=== PATIENT | male | born 1990 | race Hispanic/Latino ===

== ENCOUNTER 2021-02-06 22:04 | Inpatient (IN) | payer BC ==
[2021-02-06] MEDS ORDERED: MORPHINE 4 MG/ML SYR ONE (22:25)
[2021-02-06] MEDS ORDERED: FAMOTIDINE 20 MG/2 ML VIAL IV ONE (22:26)
[2021-02-06] MEDS ORDERED: ONDANSETRON 4 MG/2 ML VIAL ONE (22:26)
[2021-02-06 22:53] LABS: Absolute Lymphocytes (CBC) 1.9 K/uL (0.7-4.9); Basophils % 0.2 % (0-1.3); Hematocrit 45.7 % (39.6-49.0); Lymphocytes % 23.9 % (15.3-44.8); MPV 9.8 fL (7.6-11.3); RBC Red Blood Cell Count 5.06 M/uL (4.33-5.43)
[2021-02-06 23:18] LABS: ALT/SGPT 41 U/L (12-78); AST/SGOT 21 U/L (15-37); Albumin 4.1 g/dL (3.4-5.0); Alkaline Phosphatase 53 U/L (45-117); BUN Blood Urea Nitrogen 18 mg/dL (7-18); Bicarbonate 24 mmol/L (21-32); Bilirubin Direct 0.3 mg/dL (0-0.2); Glucose Level 124 mg/dL (74-106); Magnesium 2.3 mg/dL (1.8-2.4); NT PRO-BNP 100 pg/mL (<125); Potassium 3.4 mmol/L (3.5-5.1); Protein, Total 7.6 g/dL (6.4-8.2); Sodium Level 142 mmol/L (136-145); Troponin (Emerg Dept Use Only) < 0.02 ng/mL (0.0-0.045)
[2021-02-06 23:27] LABS: Protime INR 1.03
[2021-02-06] MEDS ORDERED: NA CHLORIDE 0.9% 1,000 ML ONE (23:31)
[2021-02-07 01:22] LABS: Urine Blood Negative (Negative); Urine Glucose Negative (Negative); Urine Protein 2+ (Negative); Urine pH >=9.0 (5.0-7.0)
--- NOTE | 2021-02-07 02:19 | ER ---
Nurse's Notes [facility] Name: Prince Townsend Age: 30 yrs Sex: Male : 1990 Arrival Date: 02/06/2021 Time: 22:08 Bed 7 Private MD: Diagnosis: Upper abdominal pain, unspecified;Cholelithiasis, possible cholecystitis Presentation: 02/06 22:08 Chief complaint: EMS states: " He was at work when he started to feel a chest pain it tw5 started in the back and moved to chest. He was complaining that he was started to short of breath. He has been throwing some PVC's otherwise his EKG looked good. We did give him [address] over here. Coronavirus screen: Vaccine status: Patient reports receiving the 2nd dose of the covid vaccine. BCKSTGR. Ebola Screen: Patient negative for fever greater than or equal to 101.5 degrees Fahrenheit, and additional compatible Ebola Virus Disease symptoms Patient denies exposure to infectious person. Patient denies travel to an Ebola-affected area in the 21 days before illness onset. Initial Sepsis Screen: Does the patient meet any 2 criteria? No. Patient's initial sepsis screen is negative. Does the patient have a suspected source of infection? No. Patient's initial sepsis screen is negative. Risk Assessment: Do you want to hurt yourself or someone else? Patient reports no desire to harm self or others. Onset of symptoms was February 06, 2021 at 07:30. 22:08 Method Of Arrival: EMS: [facility] tw5 22:08 Acuity: JOHN 2 tw5 Triage Assessment: 22:12 General: Appears in no apparent distress. Behavior is cooperative, appropriate for age, tw5 anxious. Pain: Complains of pain in chest Pain currently is 8 out of 10 on a pain scale. Quality of pain is described as heavy, pressure, radiating. 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 - Social history:: Smoking status: Patient denies any tobacco usage or history of. Screenin:14 Abuse screen: Denies threats or abuse. Denies injuries from another. Nutritional tw5 screening: No deficits noted. Tuberculosis screening: No symptoms or risk factors identified. Fall Risk No fall in past 12 months (0 pts). No secondary diagnosis (0 pts). IV access (20 points). Ambulatory Aid- None/Bed Rest/Nurse Assist (0 pts). Gait- Normal/Bed Rest/Wheelchair (0 pts). Assessment: 22:14 General: Appears uncomfortable, Behavior is cooperative, appropriate for age, anxious, tw5 Reports " It hurts so bad". Pain: Complains of pain in chest Pain currently is 8 out of 10 on a pain scale. Quality of pain is described as heavy, pressure. Cardiovascular: Rhythm is sinus rhythm with unifocal PVCs. 22:40 General: Behavior is. Derm: Skin is clammy, Skin is pale. tw5 23:39 General: at the bedside " He is doing okay, but he will fall asleep and his tw5 breathing gets really shawllow.". General: Behavior is drowsy. Neuro: Level of Consciousness is awake, alert. Neuro: Level of Consciousness is obeys commands, Oriented to person, place, time, situation. Respiratory: Airway is patent Trachea midline Respiratory effort is even, unlabored, shallow, Respiratory pattern is regular. GI: Abdomen is non-distended, obese, Bowel sounds present X 4 quads. Abd is soft X 4 quads Abdomen is tender to palpation in right upper quadrant. 02/07 01:16 Reassessment: Patient appears in no apparent distress at this time. No changes from tw5 previously documented assessment. General: Behavior is calm, cooperative. Pain: Pain currently is 5 out of 10 on a pain scale. 02:09 Reassessment: provider at the bedside. tw5 02:27 General: [phone] Hanny- . tw5 02:29 Pain: Pain currently is 8 out of 10 on a pain scale. tw5 06:36 Reassessment: Patient appears in no apparent distress at this time. No changes from tw5 previously documented assessment. " I am actually feeling a lot better.". Vital Signs: 02/06 22:08 BP 128 / 87; Pulse 69; Resp 14; Temp 98.7; Pulse Ox 98% on R/A; Weight 90.72 kg; Height tw5 5 ft. 6 in. (167.64 cm); Pain 8/10; 22:29 Pulse Ox 71% on R/A; tw5 22:40 BP 118 / 82; Pulse 69; Resp 18; Pulse Ox 100% on R/A; Pain 8/10; tw5 23:39 BP 123 / 78; Pulse 74; Resp 18; Pulse Ox 100% on R/A; tw5 23:41 Pain 5/10; tw5 12 01:16 BP 121 / 86; Pulse 69; Resp 18; Pulse Ox 100% on R/A; Pain 5/10; tw5 02:10 BP 123 / 74; Pulse 94; Resp 20; Pulse Ox 100% on R/A; tw5 06:37 Pain 5/10; tw5 02/06 22:08 Body Mass Index 32.28 (90.72 kg, 167.64 cm) tw5 02/06 22:29 Patient states that he feels like the pressure is spreading all the way to his sternum. tw5 Patient was instructed to take some deep breaths. Oxygen hooked up for standby. Patient's oxygen level increased to 100 after talking to the patient. ED Course: 22:08 Patient arrived in ED. cs9 22:08 Anastasia Noland is Primary Nurse. tw5 22:12 Triage completed. tw5 22:12 Arm band placed on Patient placed in an exam room, on a stretcher, on classroom monitor, tw5 on pulse oximetry. EKG completed in triage. Results shown to MD. 22:14 Angel Moreau MD is Attending Physician. [facility] 22:14 Patient has correct armband on for positive identification. Placed in gown. Bed in low tw5 position. Call light in reach. Side rails up X 1. ekg monitor on. Pulse ox on. NIBP on. Door closed. Noise minimized. Lights dimmed. Warm blanket given. Verbal reassurance given. 22:14 Initial lab(s) drawn, by me, sent to lab. Maintain EMS IV. Dressing intact. Good blood tw5 return noted. Site clean \\T\\ dry. Gauge \\T\\ site: 20 RAC. 22:41 Basic Metabolic Panel Sent. tw5 22:41 CBC with Automated Diff Sent. tw5 22:41 Liver (Hepatic) Function Sent. tw5 22:41 Basic Metabolic Panel Sent. tw 22:41 CBC with Diff Sent. 22:41 LFT's Sent. tw 22:41 Magnesium Sent. tw 22:41 NT PRO-BNP Sent. tw 22:41 PT-INR Sent. tw 22:41 Troponin (emerg Dept Use Only) Sent. tw5 22:53 US Abdomen Limited In Process Unspecified. EDMS 23:45 Chest Single View XRAY In Process Unspecified. EDMS 02/07 01:16 Urine collected: clean catch specimen. tw5 02:18 John Taylor MD is Hospitalizing Provider. [facility] 08:52 No provider procedures requiring assistance completed. Patient admitted, IV remains in 7 place. intact, No redness/swelling at site. 14:24 Primary Nurse role handed off by Anastasia Noland Administered Medications: 02/06 22:33 Drug: Pepcid (famotidine) 20 mg Route: IVP; Site: right antecubital; tw5 23:41 Follow up: Response: No adverse reaction tw 22:34 Drug: morphine 4 mg Route: IVP; Site: right antecubital; tw5 23:41 Follow up: Response: No adverse reaction tw 23:41 Follow up: Pain 5/10 Adult; Response: No adverse reaction; Anxiety decreased; RASS: tw5 Drowsy (-1) 22:34 Drug: Zofran (Ondansetron) 4 mg Route: IVP; Site: right antecubital; tw5 23:41 Follow up: Response: No adverse reaction tw5 23:40 Drug: NS 0.9% 1000 ml Route: IV; Rate: 1000 ml; Site: right antecubital; tw5 02/07 01:17 Follow up: Response: No adverse reaction; IV Status: Completed infusion tw5 02:30 Drug: Zofran (Ondansetron) 4 mg Route: IVP; Site: right antecubital; tw5 06:37 Follow up: Response: No adverse reaction tw5 02:31 Drug: morphine 4 mg Route: IVP; Site: right antecubital; tw5 06:37 Follow up: Pain 5/10 Adult; Response: No adverse reaction; Pain is decreased; RASS: tw5 Alert and Calm (0) 02:32 Drug: Zosyn (piperacillin-tazobactam) 3.375 grams Route: IVPB; Infused Over: 60 mins; tw5 Site: right antecubital; 06:36 Follow up: Response: No adverse reaction; IV Status: Completed infusion tw5 Outcome: 02:19 Decision to Hospitalize by Provider. [facility] 09:52 Admitted to ER Hold. Please see [facility] for further documentation. 7 09:52 Condition: stable 09:52 Discharge instructions given to patient, family, Instructed on the need for admit, Demonstrated understanding of instructions. 14:52 Patient left the ED. jl7 Signatures: Dispatcher [employer] EDMS Renetta Domingo RN RN jl7 Radha Matos Maurice, MD MD [facility] Anastasia Noland rust Cristal Francois Davian Corrections: (The following items were deleted from the chart) 02:24 02:20 CORONAVIRUS+ drawn and sent. 5 EDND 09:52 08:00 Inserted saline lock: 22 gauge in right wrist, using aseptic technique. jl7 jl7
--- NOTE | 2021-02-07 02:19 | EDPHYS ---
Physician Documentation [facility] Name: Prince Townsend Age: 30 yrs Sex: Male : 1990 Arrival Date: 02/06/2021 Time: 22:08 Bed 7 Private MD: ED Physician Angel Moreau HPI: 02/06 22:22 This 30 yrs old Male presents to ER via EMS with complaints of Chest Pain. mh7 22:22 The patient or guardian reports chest pain that is located primarily in the anterior mh7 chest wall, right. The pain radiates to right back. Associated signs and symptoms: Pertinent positives: abdominal pain, Pertinent negatives: cough, diaphoresis, dizziness, headache, lower extremity pain, lower extremity swelling, lightheadedness, nausea, near syncope, palpitations, recent travel, shortness of breath, syncope, vomiting. The chest pain is described as a pressure. Duration: The patient or guardian reports a single episode, that is still ongoing, and unchanged. Modifying factors: The symptoms are alleviated by nothing. the symptoms are aggravated by nothing. Severity of pain: At its worst the pain was moderate today, in the emergency department the pain is unchanged. EMS care prior to arrival includes: aspirin. 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 - Social history:: Smoking status: Patient denies any tobacco usage or history of. ROS: 22:22 Constitutional: Negative for fever, chills, and weight loss, Eyes: Negative for injury, mh7 pain, redness, and discharge, ENT: Negative for injury, pain, and discharge, Neck: Negative for injury, pain, and swelling, Respiratory: Negative for shortness of breath, cough, wheezing, and pleuritic chest pain, Back: Negative for injury and pain, : Negative for injury, bleeding, discharge, and swelling, MS/Extremity: Negative for injury and deformity, Skin: Negative for injury, rash, and discoloration, Neuro: Negative for headache, weakness, numbness, tingling, and seizure, Psych: Negative for depression, anxiety, suicide ideation, homicidal ideation, and hallucinations, Allergy/Immunology: Negative for hives, rash, and allergies, Endocrine: Negative for neck swelling, polydipsia, polyuria, polyphagia, and marked weight changes, Hematologic/Lymphatic: Negative for swollen nodes, abnormal bleeding, and unusual bruising. Exam: 22:22 Head/Face: Normocephalic, atraumatic. Eyes: Pupils equal round and reactive to light, mh7 extra-ocular motions intact. Lids and lashes normal. Conjunctiva and sclera are non-icteric and not injected. Cornea within normal limits. Periorbital areas with no swelling, redness, or edema. Neck: Trachea midline, no thyromegaly or masses palpated, and no cervical lymphadenopathy. Supple, full range of motion without nuchal rigidity, or vertebral point tenderness. No Meningismus. Chest/axilla: Normal chest wall appearance and motion. Nontender with no deformity. No lesions are appreciated. Cardiovascular: Regular rate and rhythm with a normal S1 and S2. No gallops, murmurs, or rubs. Normal PMI, no JVD. No pulse deficits. Respiratory: Lungs have equal breath sounds bilaterally, clear to auscultation and percussion. No rales, rhonchi or wheezes noted. No increased work of breathing, no retractions or nasal flaring. Back: No spinal tenderness. No costovertebral tenderness. Full range of motion. Skin: Warm, dry with normal turgor. Normal color with no rashes, no lesions, and no evidence of cellulitis. MS/ Extremity: Pulses equal, no cyanosis. Neurovascular intact. Full, normal range of motion. Neuro: Awake and alert, GCS 15, oriented to person, place, time, and situation. Cranial nerves II-XII grossly intact. Motor strength 5/5 in all extremities. Sensory grossly intact. Cerebellar exam normal. Normal gait. Psych: Awake, alert, with orientation to person, place and time. Behavior, mood, and affect are within normal limits. 22:22 Constitutional: The patient appears in no acute distress, alert, awake, uncomfortable. 22:22 Abdomen/GI: Inspection: obese Bowel sounds: normal, in all quadrants, Palpation: moderate abdominal tenderness, in the epigastric area and right upper quadrant, mass, is not appreciated, rebound tenderness, is not appreciated, voluntary guarding, is not appreciated, involuntary guarding, is not appreciated, no appreciated organomegaly, Rectal exam: the exam is deferred, because of patient request, Indicators: McBurney's point is not tender, King's sign is negative, Rovsing's sign is negative, Obturator sign is negative, Psoas sign is negative, Liver: no appreciated palpable abnormalities, Hernia: not appreciated. Vital Signs: 22:08 BP 128 / 87; Pulse 69; Resp 14; Temp 98.7; Pulse Ox 98% on R/A; Weight 90.72 kg; Height tw5 5 ft. 6 in. (167.64 cm); Pain 8/10; 22:29 Pulse Ox 71% on R/A; tw5 22:40 BP 118 / 82; Pulse 69; Resp 18; Pulse Ox 100% on R/A; Pain 8/10; tw5 23:39 BP 123 / 78; Pulse 74; Resp 18; Pulse Ox 100% on R/A; tw5 23:41 Pain 5/10; tw5 02/07 01:16 BP 121 / 86; Pulse 69; Resp 18; Pulse Ox 100% on R/A; Pain 5/10; tw5 02:10 BP 123 / 74; Pulse 94; Resp 20; Pulse Ox 100% on R/A; tw5 06:37 Pain 5/10; tw5 02/06 22:08 Body Mass Index 32.28 (90.72 kg, 167.64 cm) tw5 02/06 22:29 Patient states that he feels like the pressure is spreading all the way to his sternum. tw5 Patient was instructed to take some deep breaths. Oxygen hooked up for standby. Patient's oxygen level increased to 100 after talking to the patient. MDM: 02/07 02:13 Differential diagnosis: acute myocardial infarction, anxiety, chest wall pain, mh7 cholecystitis, Cholelithiasis costochondritis, esophagitis, gastritis, gastroesophageal reflux disease (GERD), pancreatitis. HEART Score: History: Slightly Suspicious (0), ECG: Normal (0), Age: < or = 45 years (0), Risk Factors: No Risk Factors Known (0), Troponin: < or = 1 x Normal Limit (0), Total Score = 0. Data reviewed: vital signs, nurses notes, lab test result(s), cardiac enzymes, CBC, electrolytes, urinalysis, EKG, radiologic studies, plain films, ultrasound. Data interpreted: Pulse oximetry: on room air is 100 %. Interpretation: normal. Counseling: I had a detailed discussion with the patient and/or guardian regarding: the historical points, exam findings, and any diagnostic results supporting the discharge/admit diagnosis, lab results, radiology results, the need for further work-up and treatment in the hospital. Response to treatment: the patient's symptoms have mildly improved after treatment. Physician consultation: John Taylor MD was contacted at 02:10, regarding patient's condition, and will see patient in inpatient room. 02:19 Patient medically screened. [facility] 02/06 22:16 Order name: Basic Metabolic Panel [facility] 02/06 22:16 Order name: CBC with Diff [facility] 02/06 22:16 Order name: LFT's [facility] 02/06 22:16 Order name: Magnesium; Complete Time: 23:53 [facility] 02/06 22:16 Order name: NT PRO-BNP; Complete Time: 23:53 [facility] 02/06 22:16 Order name: PT-INR; Complete Time: 23:53 [facility] 02/06 22:16 Order name: Troponin (emerg Dept Use Only); Complete Time: 23:53 [facility] 02/06 22:16 Order name: Basic Metabolic Panel; Complete Time: 23:53 [facility] 02/06 22:16 Order name: CBC with Automated Diff; Complete Time: 23:09 [facility] 02/06 22:16 Order name: Liver (Hepatic) Function; Complete Time: 23:53 [facility] 02/06 22:20 Order name: Lipase; Complete Time: 00:48 [facility] 02/07 01:22 Order name: Urine Dipstick-Ancillary; Complete Time: 02:00 [facility] 02/07 02:24 Order name: SARS-COV-2 RT PCR [facility] 02/06 22:16 Order name: EKG; Complete Time: 22:17 [facility] 02/06 22:16 Order name: Cardiac monitoring; Complete Time: 22:16 [facility] 02/06 22:16 Order name: EKG - Nurse/Tech; Complete Time: 22:16 [facility] 02/06 22:16 Order name: IV Saline Lock; Complete Time: 22:16 [facility] 02/06 22:16 Order name: Labs collected and sent; Complete Time: 22:16 [facility] 02/06 22:16 Order name: O2 Per Protocol; Complete Time: 22:16 [facility] 02/06 22:22 Order name: US Abdomen Limited [facility] 02/06 23:08 Order name: Chest Single View XRAY [facility] 02/07 02:29 Order name: NPO; Complete Time: 02:29 EDMS 02/06 22:16 Order name: O2 Sat Monitoring; Complete Time: 22:16 [facility] 02/06 23:09 Order name: Urine Dipstick-Ancillary (obtain specimen); Complete Time: 01:17 [facility] 02/07 02:13 Order name: NPO; Complete Time: 02:15 7 Administered Medications: 02/06 22:33 Drug: Pepcid (famotidine) 20 mg Route: IVP; Site: right antecubital; tw5 23:41 Follow up: Response: No adverse reaction tw5 22:34 Drug: morphine 4 mg Route: IVP; Site: right antecubital; tw5 23:41 Follow up: Response: No adverse reaction tw5 23:41 Follow up: Pain 5/10 Adult; Response: No adverse reaction; Anxiety decreased; RASS: tw5 Drowsy (-1) 22:34 Drug: Zofran (Ondansetron) 4 mg Route: IVP; Site: right antecubital; tw5 23:41 Follow up: Response: No adverse reaction tw5 23:40 Drug: NS 0.9% 1000 ml Route: IV; Rate: 1000 ml; Site: right antecubital; 5 02/07 01:17 Follow up: Response: No adverse reaction; IV Status: Completed infusion tw5 02:30 Drug: Zofran (Ondansetron) 4 mg Route: IVP; Site: right antecubital; tw5 06:37 Follow up: Response: No adverse reaction tw5 02:31 Drug: morphine 4 mg Route: IVP; Site: right antecubital; tw5 06:37 Follow up: Pain 5/10 Adult; Response: No adverse reaction; Pain is decreased; RASS: tw5 Alert and Calm (0) 02:32 Drug: Zosyn (piperacillin-tazobactam) 3.375 grams Route: IVPB; Infused Over: 60 mins; tw5 Site: right antecubital; 06:36 Follow up: Response: No adverse reaction; IV Status: Completed infusion tw5 Disposition Summary: 02/07/21 02:19 Hospitalization Ordered Hospitalization Status: Inpatient Admission [facility] Provider: John Taylor [facility] Condition: Stable [facility] Problem: new [facility] Symptoms: have improved [facility] Bed/Room Type: Standard [facility] Location: [facility] ER HOLD(02/07/21 02:50) mw Room Assignment: ERHOLD-(02/07/21 02:50) mw Diagnosis - Upper abdominal pain, unspecified [facility] - Cholelithiasis, possible cholecystitis [facility] Forms: - Medication Reconciliation Form [facility] - SBAR form [facility] Signatures: Dispatcher [employer] EDMS Rhonda Mccurdy RN RN Angel Moreau MD MD [facility] Anastasia Noland 5 Corrections: (The following items were deleted from the chart) 02/06 22:23 22:21 LIPASE+C.LAB.BRZ ordered. EDUT EDMS 02/07 02:24 02:18 CORONAVIRUS+MR.LAB.BRZ ordered. EDUT EDMS 02:50 02:19 Telemetry/MedSurg (Inpatient) [facility] 02:50 02:19 [facility]
[2021-02-07] MEDS ORDERED: NA CHLORIDE 0.9% 100 ML ONE ×2 (02:20→08:38)
[2021-02-07] MEDS ORDERED: MORPHINE 4 MG/ML SYR ONE ×2 (02:20→10:23)
[2021-02-07] MEDS ORDERED: ONDANSETRON 4 MG/2 ML VIAL ONE ×2 (02:20→15:47)
[2021-02-07] MEDS ORDERED: PIPERACIL/TAZO 3.375 GM VIAL IV ONE ×2 (02:21→08:38)
[2021-02-07] MEDS ORDERED: ONDANSETRON 4 MG/2 ML VIAL IV PRN ×2 (02:25→17:37)
[2021-02-07] MEDS ORDERED: MORPHINE 4 MG/ML SYR IV PRN (02:25)
[2021-02-07] MEDS: D5 0.45 NS 1,000 ML IV SCH ×3 (03:00→20:10)
[2021-02-07] MEDS ORDERED: D5 0.45 NS 1,000 ML IV ONE (08:38)
[2021-02-07] MEDS ORDERED: PIPER TAZO 3.375 GM in NA CHLORIDE 0.9% 100 ML IV SCH (09:00)
--- NOTE | 2021-02-07 10:35 | RAD REPORT ---
EXAM DESCRIPTION: RAD - Chest Single View - 02/06/2021 11:45 pm CLINICAL HISTORY: CHEST PAIN Chest pain. COMPARISON: No comparisons FINDINGS: Portable technique limits examination quality. The lungs are grossly clear. The heart is normal in size. No displaced fractures. IMPRESSION: No acute intrathoracic process suspected.
[2021-02-07 14:01] VITALS: BMI 32.3
--- NOTE | 2021-02-07 14:36 | P.HP ---
Date of Service: 02/07/21 PC: This 30-year-old male presented to the emergency room with severe right upper quadrant abdominal pain for diagnosis and treatment. HPC: Patient had just eaten a chicken sandwich. Began experiencing severe right upper quadrant abdominal pain, radiating into his back. Never had pains like this in the past. This is his first episode. Describes as extremely severe. PSHx: Gastric sleeve PMHx: Denies any medical issues Social Hx: No known allergies, does not take any medications on a regular basis Sys R: No cough, wheeze, shortness of breath. No chest pain or palpitations. Denies any urinary complaints. Has not had any episodes like this before. O/E: Awake alert vital signs are stable HEENT: Nonicteric Chest: Chest movement equal bilaterally Abd: Abdomen is soft, mild right upper quadrant abdominal tenderness. No guarding or rebound. [place]: Intact Data: Ultrasound shows stones in the gallbladder Impression: Acute on chronic cholecystitis with cholelithiasis biliary colic Plan: I will taken the operating room for laparoscopic possible open cholecystectomy with cholangiogram. The risks of this procedure have been discussed with him and his . The possibility of bleeding, infection, injury to bile ducts blood vessels and intestines has been described. The possible need for an open and/or further surgeries and procedures was discussed. He understands and wants us to proceed.
[2021-02-07] MEDS ORDERED: LIDOCAINE 2% MPF 5 ML VIAL ONE (14:53)
[2021-02-07] MEDS ORDERED: propofoL 200 MG/20 ML VIAL IV ONE (14:53)
[2021-02-07] MEDS ORDERED: FENTANYL CITR 100 MCG/2 ML ONE ×3 (14:53→16:50)
[2021-02-07] MEDS ORDERED: ROCURONIUM 50 MG/5 ML VIAL IV ONE ×2 (14:53→16:48)
[2021-02-07] MEDS ORDERED: BUPIVACAINE 0.5% Inj,MDV 50 mL VIAL ONE (14:58)
[2021-02-07] MEDS: Ringers Lactate 1,000 ML IV ONE (15:00)
[2021-02-07] MEDS ORDERED: BUPIVACAINE 0.5% PF 10 ML VIAL ONE (15:02)
[2021-02-07] MEDS ORDERED: dexAMETHasone 10 MG/ML VIAL ONE (15:46)
[2021-02-07] MEDS ORDERED: KETOROLAC 30 MG/ML INJ ONE (15:46)
[2021-02-07] MEDS ORDERED: INFLUENZA VACCINE (for 6+ mo) 0.5 ML DOSE IMVAC ONE (16:00)
[2021-02-07] MEDS ORDERED: NEOSTIGMINE 1 MG/ML -5 ML ONE (16:18)
[2021-02-07] MEDS ORDERED: GLYCOPYRROLATE 0.2 MG/ML SYR ONE (16:18)
--- NOTE | 2021-02-07 17:25 | P.OP ---
Preoperative diagnosis: Acute on chronic cholecystitis with cholelithiasis, biliary colic Postoperative diagnosis: The same Primary procedure: Laparoscopic cholecystectomy Secondary procedure: Intraoperative cholangiogram Anesthesia: General Estimated blood loss: Less than 50 cc Specimen: Gallbladder and contents Operative Technique: The patient was brought the operating room and placed supine on the table. After the induction of adequate general endotracheal anesthesia, the area of the abdomen was prepped with a DuraPrep solution, and he was draped in usual aseptic manner. A subumbilical incision was made. This was brought down through the skin and subcutaneous tissue. The Visiport was used to enter the peritoneal cavity and created pneumoperitoneum to approximately 12 the 12 mmHg. Under direct vision a 5 mm trocar was placed in upper midline, and 2 other 5 mm trochars on the right lateral sides of the abdomen. The patient was then placed in reverse Trendelenburg. The table was leaning to the left. We can now visualize the right upper quadrant. We could see that the omentum was adherent to an inflammatory process underneath the liver. These omental adhesions were taken down using blunt and sharp dissection. There was also a piece of incarcerated omentum that went through the anterior abdominal wall, likely old 5 mm trocar site. These were returned to the peritoneal cavity. Attention was now turned towards the gallbladder. It was noted to be markedly discolored with bile coming through almost through the serosal surface. Most likely partial ford grene at some portion of the gallbladder. To deflate the gallbladder the aspirating needle was placed into the gallbladder and its contents aspirated. We were now able to place the gallbladder on this large edematous acutely inflamed tissue. The omental adhesions were taken down off the serosal surface. Gentle dissection allowed us to finally dissect out and follow Zhao's pouch. It was located in very edematous and swollen tissue. The cystic duct was identified. A clip was placed between the gallbladder and the cystic duct. An opening was made into the cystic duct through which we now attempted to obtain a cholangiogram. The cholangiogram was suboptimal but we could see that there was good flow of contrast down into the duodenum. There was no evidence of any filling defects. The patient has a narrow cystic duct with loss of valves. The catheter was now removed. Clips were placed on the distal portion of the cystic duct. The cystic artery was clipped and divided. As we dissected down the gallbladder from the liver bed there was another area with a large vasculature coming onto the body of the gallbladder. This was controlled using clips. The gallbladder was now dissected free from the liver bed, placed into an Endo Catch, and brought out through the umbilical trocar site. Attention was turned back towards the subhepatic area. There was some active bleeding that was identified. Some of this was from the liver bed. The other was from the adhesion of the omentum to the anterior abdominal wall mentioned at the first part of the dictation. This was clipped and divided. Adequate hemostasis was now secured. The umbilical trocar site was approximated using the Endo Close and an absorbable suture. The suture was tied, the pneumoperitoneum collapsed, and marquise applied to the skin. At the end of the procedure he was in a stable condition was sent to the recovery room. Needle sponge instrument count were correct. No drains were placed. Complications: None Transferred to: Recovery Room Condition: Good
[2021-02-07 17:26] VITALS: O2SAT 100
[2021-02-07] MEDS: HYDROMORPHONE HCL 1 MG/ML INJ ONE ×2 (17:53→17:58)
--- NOTE | 2021-02-07 17:55 | RAD REPORT ---
EXAM DESCRIPTION: RAD - Cholangiogram Oper-Xray Or - 02/07/2021 5:40 pm CLINICAL HISTORY: LAP CHRISTOPHER COMPARISON: Abdomen Exam Limited dated 02/06/2021 FINDINGS: Intraoperative cholangiogram was performed the operating surgeon. Submitted images are gurpreet ewhat limited in contrast opacification of the biliary tree. However, grossly no common duct stone is evident. MRCP follow-up could be obtained clinical concern for possible duct stone. Total fluoro time: 0.5 minutes. Six fluoroscopic images obtained.
[2021-02-07] MEDS: MORPHINE 4 MG/ML SYR IV PRN ×2 (19:25→23:18)
[2021-02-08] MEDS: D5 0.45 NS 1,000 ML IV SCH ×2 (03:30→11:00)
[2021-02-08] MEDS: MORPHINE 4 MG/ML SYR IV PRN (04:45)
[2021-02-08 09:01] VITALS: TEMP 98.1
[2021-02-08] MEDS ORDERED: HYDROCODONE/APAP 7.5/325 MG TAB PO PRN (10:16)
[2021-02-08] MEDS ORDERED: NA CHLORIDE 0.9% 500 ML IV ONE (10:37)
[2021-02-08] MEDS ORDERED: NA CHLORIDE 0.9% 1,000 ML ONE (10:44)
[2021-02-08 11:12] LABS: Absolute Lymphocytes (CBC) 1.7 K/uL (0.7-4.9); Basophils % 0.4 % (0-1.3); Hematocrit 39.7 % (39.6-49.0); Lymphocytes % 16.2 % (15.3-44.8); MPV 9.3 fL (7.6-11.3); RBC Red Blood Cell Count 4.37 M/uL (4.33-5.43)
--- NOTE | 2021-02-08 12:20 | P.DS ---
Admission Date: 02/07/21 Discharge Date: 02/08/21 Disposition: ROUTINE DISCHARGE Discharge Condition: GOOD Reason for Admission: Acute postoperative abdominal pain Procedures: Laparoscopic cholecystectomy with cholangiogram Brief History of Present Illness: Patient presented to the emergency room with severe right upper quadrant abdominal pain for diagnosis and treatment. Hospital Course: Patient was brought to the operating room for laparoscopic cholecystectomy with intraoperative cholangiogram. The patient underwent his procedure where we found acute on chronic cholecystitis with cholelithiasis, possible partial gangrene. He was admitted postoperatively for observation and pain control. This morning he is up ambulating, tolerating a diet, has no evidence of any post ural hypotension despite a slight drop in his hemoglobin. His pain is well controlled on oral medication and he is deemed fit for discharge. Vital Signs/Physical Exam: Temp Pulse Resp BP Pulse Ox 98.1 F 71 16 101/45 L 97 02/08/21 08:00 02/08/21 08:00 02/08/21 08:00 02/08/21 08:54 02/08/21 08:00 Laboratory Data at Discharge: WBC 10.70 K/uL (4.3-10.9) D 02/08/21 10:53 Hgb 13.4 g/dL (13.6-17.9) L 02/08/21 10:53 Hct 39.7 % (39.6-49.0) 02/08/21 10:53 Plt Count 188 K/uL (152-406) 02/08/21 10:53 PT 11.8 SECONDS (9.5-12.5) 02/06/21 23:15 INR 1.03 02/06/21 23:15 Sodium 142 mmol/L (136-145) 02/06/21 22:37 Potassium 3.4 mmol/L (3.5-5.1) L 02/06/21 22:37 BUN 18 mg/dL (7-18) 02/06/21 22:37 Creatinine 1.06 mg/dL (0.55-1.3) 02/06/21 22:37 Glucose 124 mg/dL (74-106) H 02/06/21 22:37 Magnesium 2.3 mg/dL (1.8-2.4) 02/06/21 22:37 Total Bilirubin 1.0 mg/dL (0.2-1.0) 02/06/21 22:37 AST 21 U/L (15-37) 02/06/21 22:37 ALT 41 U/L (12-78) 02/06/21 22:37 Alkaline Phosphatase 53 U/L (45-117) 02/06/21 22:37 Lipase 86 U/L (73-393) 02/06/21 22:37 Home Medications: NK [No Home Meds] 02/07/21 Physician Discharge Instructions: Ambulate at home, continue incentive spirometry. Diet as tolerated. You may shower, change dressings as needed. Any questions or problems, go to the emergency room or contact me. Call my office for follow-up appointment. Followup: John Taylor MD [ACTIVE - CAN ADMIT] - (Follow up on February 23, 2021. Call Dr. Taylor's office to schedule appointment time. ) John Taylor MD [OUTSIDE PHYSICIAN] -
[2021-02-08 12:21] VITALS: BP 101/58
--- NOTE | 2021-02-08 14:48 | RAD REPORT ---
EXAM DESCRIPTION: ABDOMINAL ULTRASOUND, LIMITED. CLINICAL HISTORY: Right upper quadrant abdominal pain. COMPARISON: None. TECHNIQUE: Transabdominal high resolution grayscale sonographic evaluation of the abdomen performed with color flow. FINDINGS: There are numerous nonmobile echogenic shadowing stones within the dependent gallbladder w ith mild nonshadowing debris compatible with sludge. The gallbladder wall is 2 mm. No pericholecystic fluid. Common bile duct is 4 mm. Positive sonographic King sign. The imaged right lobe of the liver is normal in contour. Mild increased echotexture. No mass or bilia ry dilatation. No perihepatic ascites. Imaged portions of the right kidney appear normal. IMPRESSION: 1. Impacted cholelithiasis with gallbladder sludge and pain compatible with acute cholec ystitis. No biliary dilatation. 2. Mild fatty liver infiltration. Electronically signed by: Kristi Schafer DO 02/06/2021 11:22 PM SHIPPING RECEIVING CLERK Due to temporary technical issues with the PACS/Fluency reporting system, reports are being signed by the in house radiologists without review as a courtesy to insure prompt reporting. The interpreting radiologist is fully responsible for the content of the report.
--- NOTE | 2021-02-09 08:15 | EKG ---
Test Date: 2021-02-06 Test Time: 22:03:22 Manager Transport: RORO MEASUREMENT RESULTS: Intervals: Rate: 79 ID: [id number] QRSD: 86 QT: 408 QTc: 467 [place]: P: 70 ID: [id number] QRS: 34 T: 37 INTERPRETIVE STATEMENTS: Normal sinus rhythm Normal ECG No previous ECG available for comparison Electronically Signed On 02-09-21 08:12:24 ACCOUNT COORDINATOR by Rubén Castaneda
== END 2021-02-08 13:30 | disposition home or self-care (01) | DRG 419 ==
LOC: ER 22:04 → ERHOLD 02-07 02:22 → 2ND 02-07 16:40
PROVIDERS: ADMIT Surgery; ATTEND Surgery
PROC: BF00YZZ Plain Radiography of Bile Ducts using Other Contrast (ICD-10-PCS; 2021-02-07)
PROC: 0FT44ZZ Resection of Gallbladder, Percutaneous Endoscopic Approach (ICD-10-PCS; principal; 2021-02-07 15:00)
DX: K80.12 Calculus of gallbladder with acute and chronic cholecystitis without obstruction (principal); K82.A1 Gangrene of gallbladder in cholecystitis; Z98.84 Bariatric surgery status; Z20.822 Contact with and (suspected) exposure to COVID-19
CPT/HCPCS: 36415; 71045; 74300; 76705; 80048; 80076; 81003; 83690; 83735; 83880; 84484; 85025; 85610; 88304; 93005; 94010; 94760; 96361; 96365; 96366; 96375; 99285; J1100; J1170; J2405; J2543; J2704; J2710; J3010; J7030; J7120; J7799; U0003